=== PATIENT | female | born 1985 | race Caucasian/White ===

== ENCOUNTER 2024-09-12 11:30 | Outpatient (CLI) | payer MEDICAID, SELFPAY ==
[2024-09-12 14:12] LABS: Basophils % 0.6 % (0.1-2.0); Eosinophils % 0.4 % (0.1-12.0); Hematocrit 42.7 % (37.0-47.0); Hemoglobin 13.5 g/dL (12.2-16.2); Immature Granulocytes # 0.01 10^3uL; Immature Granulocytes % 0.2 %; Lymphocytes # 1.4 K/mm3 (0.7-4.5); Lymphocytes % 28.7 % (10-50); Mean Corpuscular HGB Conc 31.6 g/dL (31.8-35.4); Mean Corpuscular Hemoglobin 28.2 pg (27.0-31.2); Mean Corpuscular Volume 89.1 fl (81-99); Mean Platelet Volume 10.7 fl (7.4-10.4); Monocytes # 0.3 K/mm3 (0.1-1.0); Neutrophils % 63.1 % (37.0-80.0); Nucleated Red Blood Cells # 0 10^3/uL; Nucleated Red Blood Cells % 0 %; Platelet Count 231 K/mm3 (142-424); Red Blood Count 4.79 M/mm3 (4.20-5.40); Red Cell Distribution Width 12.4 % (11.5-17.5); Red Cell Distribution Width-SD 41.1 fL; White Blood Count 4.7 K/mm3 (4.8-10.8)
[2024-09-12 15:59] LABS: Alanine Aminotransferase 13 U/L (12-78); Albumin Level 4.3 g/dl (3.5-5.0); Albumin/Globulin Ratio 1.5 (1.1-1.8); Alkaline Phosphatase 79 U/L (38-126); Anion Gap 10.6 mEq/L (5-15); Aspartate Amino Transferase 22 U/L (14-36); Bilirubin,Total 0.8 mg/dl (0.2-1.3); Blood Urea Nitrogen 10 mg/dl (7-17); Calcium 8.9 mg/dl (8.4-10.2); Carbon Dioxide 29 mmol/L (22.0-30.0); Chloride 105 mmol/L (98-107); Chol/HDL Ratio 3.2 (1-3.5); Cholesterol 176 mg/dl (140-200); Estimated Glomerular Filt Rate 93 ml/min (>60); GFR (African American) 113 ML/MIN (>60); Globulin 2.9 g/dL (1.3-3.2); Glucose 87 mg/dl (74-100); HDL Cholesterol 55 mg/dl (40-60); Potassium 4.6 mmoL/L (3.5-5.1); Sodium 140 mmol/L (136-145); Total Protein,Serum 7.2 g/dl (6.3-8.2); Triglycerides 51 mg/dl (30-150); VLDL Cholesterol 10 mg/dL (0-40)
[2024-09-12 16:06] LABS: Hemoglobin A1C 5.2 % (4.0-6.0)
[2024-09-12 16:14] LABS: Direct LDL Cholesterol 90.17 mg/dL (100-129)
[2024-09-12 16:31] LABS: Thyroid Stimulating Hormone 1.27 uIU/mL (0.465-4.68)
--- OUTSIDE RECORDS SUMMARY | 2024-09-13 13:09 | XMS_ITS | Clinical Summary ---
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 Active ibuprofen (ADVIL;MOTRIN) 600 mg Oral Tablet Take 600 mg by mouth every 8 hours as needed for Pain. Active fluticasone (FLONASE) 50 mcg/actuation Nasl [place], SuspensionIndica tions:Acute sinusitis, recurrence not specified, unspecified location One spray in each nostril every 12 hours for three days. Then stop for two days. May repeat cycle as needed. 1 Bottle 0 6 Active Additional Information Patient not taking.Reason: Other, Reported on 04/26/2017 METHADONE HCL (METHADONE ORAL) Take 25 mg by mouth every 12 hours. Active ibuprofen (ADVIL;MOTRIN) 800 mg Oral TabletIndication s:Influenza Take 1 Tab by mouth every 8 hours as needed for Pain. 30 Tab 7 Active Additional Information Patient not taking.Reason: Other, Reported on 04/26/2017 nitrofurantoin, macrocrystal-mon ohydrate, (MACROBID) 100 mg Oral CapsuleIndicatio ns:Urinary tract infection, site unspecified Take 1 Cap by mouth 2 times daily. 14 Cap 7 Active Additional Information Patient not taking.Reason: Other, Reported on 04/26/2017 predniSONE (DELTASONE) 20 mg Oral TabletIndication s:Acute bronchitis, unspecified organism 3 tabs daily 9 Tab 7 Active Additional Information Patient not taking.Reason: Other, Reported on 04/26/2017 albuterol (PROVENTIL HFA;VENTOLIN HFA) 90 mcg/actuation Inhl HFA Aerosol InhalerIndicatio ns:Acute bronchitis, unspecified organism Inhale 2 Puffs into the lungs every 4 hours as needed for Wheezing. 1 Inhaler 7 Active Additional Information Patient not taking.Reported on 04/26/2017 fluticasone (FLONASE) 50 mcg/actuation Nasl [place], SuspensionIndica tions:Acute laryngitis 1 [place] by Nasal route daily. 1 Bottle 2 7 Active Additional Information Patient not taking.Reported on 04/26/2017 Brompheniramine- Pseudoeph-DM 2-30-10 mg/5 mL Oral SyrupIndications :Flu-like symptoms Take 10 mL by mouth every 4 hours as needed (Cough, Nasal Congestion, Allergies). 240 mL 8 Active Additional Information Patient not taking.Reported on 09/24/2023 promethazine (PHENERGAN) 25 mg Oral TabletIndication s:Acute cystitis without hematuria Take 1 Tab by mouth every 6 hours as needed for Nausea or Vomiting. 15 Tab 8 Active Additional Information Patient not taking.Reported on 09/24/2023 Active Problems No known active problems Surgical History Surgery Date Site/Laterality Comments ECTOPIC SURGERY HERNIA REPAIR Social History Tobacco Use Types Packs/Day Years Used Date Smoking Tobacco: Every Day Cigarettes Smokeless Tobacco: Never Alcohol Use Standard Drinks/Week Comments No 0 (1 standard drink = 0.6 oz pur e alcohol) Comments No Sex and Gender Information Value Date Recorded Sex Assigned at Not on file Legal Sex Female 2:38 AM EDT Gender Identity Not on file Sexual Orientation Not on file Obstetrics History Last Filed Vital Signs Vital Sign Reading Time Taken Comments Blood Pressure 124/66 09/24/2023 7:12 PM EDT Pulse 88 09/24/2023 7:12 PM EDT Temperature 36.9 C (98.4 F) 09/24/2023 5:18 PM EDT Respiratory Rate 16 09/24/2023 7:12 PM EDT Oxygen Saturation 98% 09/24/2023 7:12 PM EDT Inhaled Oxygen Concentration - - Weight 71.7 kg (158 lb) 04/26/2017 5:04 PM EST Height 172.7 cm (5' 8 ) 04/26/2017 5:04 PM EST Body Mass Index 24.02 04/26/2017 5:04 PM EST Plan of Treatment Health Maintenance Due Date Last Done Comments Annual Wellness Exam 02/16/1988 DTaP/TDaP/Td (1 - Tdap) 02/16/2004 Hepatitis B Vaccine (1 of 3 - 19+ 3-dose series) 02/16/2004 Pneumococcal Vaccine 0-49 (1 of 2 - PCV) 02/16/2004 HPV/Pap Cotest 2015 Cervical Cancer Screening 06/12/2016 Pap Smear 06/12/2016 06/12/2013 COVID-19 Vaccine ( - 2023-2 5 season) 2023 Influenza Vaccine (Season Ended) 2024 Meningococcal B Vaccine Aged Out No l onger eligible based on patient's age to complete this topic Procedures Procedure Name Priority Date/Time Associated Diagnosis Comments MANAGER FOREIGN CYTOLOGY REPORT Routine 06/12/2013 1 1:56 PM EST from Last 3 Months or Most Recently Relevant to Health Maintenance Results * MANAGER FOREIGN CYTOLOGY REPORT (06/12/2013 11:56 PM EST) Non Destructive Testing Technician Cytology Report PATIENT NAME:SUNNY VASQUEZ Non Destructive Testing Technician Cytology Report Accession Number Collected Date/Time Received Date/Time [id number] 06/12/13 23:56 EST 06/14/13 03:44 EST GY Specimen Source Specimen Vag/Cerv/Endocx?: Cervical/Endocervi pedro Statement of Adequacy Satisfactory for Evaluation. Transformation Zone Present. Diagnosis NEGATIVE FOR INTRAEPITHELIAL LESION OR MALIGNANCY Abundant Bacteria Present. Comment The Pap Smear is a screening test that aids in the detection of cervical cancer and cancer precursors. Both false positive and false negative results can occur. The test should be used at regular intervals, and positive results should be confirmed before definitive therapy. Processed using the ThinPrep [employer] automated cytology screening device ([employer]). Unpaid Intern: TS 06/18/2013 Completed by: ANA Shrestha (Electronically signed by) 06/18/2013 [facility] Laboratory [facility] 06/12/2013 11:5 6 PM EST us [facility] PATHOLOGY ORDERABLES Final Resu lt Performing Organization Address City/State/[facility] Co de Phone Number [facility] [address] [place] [address] from Last 3 Months or Most Recently Relevant to Health Maintenance Care Teams Supervising Film Or Videotape Editor Relationship Specialty Start Date End Date Juan R Ortiz MD [address] [place] [address] Family Medicine 01/31/17
== END 2024-09-12 23:59 | disposition home or self-care (01) ==
LOC: LAB.DROPOF 09-13 13:06
PROVIDERS: Obstetrics & Gynecology; PCP Internal Medicine; Visit Provider Internal Medicine
DX: Z91.89 Other specified personal risk factors, not elsewhere classified (principal); Z79.899 Other long term (current) drug therapy
CPT/HCPCS: 36415; 80053; 80061; 83001; 83036; 84146; 84443; 85025